=== PATIENT | female | born 1955 | race African-American/Black ===

== ENCOUNTER → 2020-06-13 | Outpatient (CLI) | payer OTHER ==
[~2020-06-13] VITALS: Ht 170.2 cm; Wt 45.4 kg
[2020-06-13] VITALS (7 sets, daily range): BP systolic 87–128; BP diastolic 42–67
[~2020-06-13] MED LIST: AMLODIPINE BESY10 MG PO; MIRTAZAPINE7.5 MG PO; PLAVIX 75 MG TA75 M1 PO; PLAVIX 75 MG TA75 MG PO; SUPER THERAVIT1 EACH PO; TRAMADOL 50 MG50 MG PO; VITAMIN C500 M2 PO; VITAMIN D3125 MCG PO; ZESTRIL5 MG PO; ZINC SULFATE220 MG PO
[2020-06-13 10:39] LABS: HEMATOCRIT 38.4 % (37.0-47.0); HEMOGLOBIN 11.2 gm/dL (12.0-15.0); MCH 22.8 pg (26.0-34.0); MCHC 29.2 g/dL (28.0-37.0); MCV 78.1 fL (80.0-100.0); RBC 4.92 mil/uL (4.20-5.00); RDW 26.6 % (10.5-14.5); WBC 17.6 thou/uL (4.0-11.0)
[2020-06-13 10:54] LABS: CREATININE 0.9 mg/dL (0.6-1.0); POTASSIUM 3.9 mmol/L (3.5-5.1)
== END | disposition home or self-care (01) ==
LOC: CATH 08:22
PROVIDERS: ATTEND Nuclear Medicine Nuclear Cardiology
DX: I70.238 Atherosclerosis of native arteries of right leg with ulceration of other part of lower leg (principal); I70.213 Atherosclerosis of native arteries of extremities with intermittent claudication, bilateral legs; I70.1 Atherosclerosis of renal artery; I10 Essential (primary) hypertension; L97.919 Non-pressure chronic ulcer of unspecified part of right lower leg with unspecified severity; Z98.890 Other specified postprocedural states; Z79.899 Other long term (current) drug therapy; Z86.73 Personal history of transient ischemic attack (TIA), and cerebral infarction without residual deficits

== ENCOUNTER → 2020-10-07 | Outpatient (CLI) | payer OTHER | LOC: SJCVCIMAG 08:36 | PROVIDERS: ATTEND Nuclear Medicine Nuclear Cardiology | DX: I65.23 Occlusion and stenosis of bilateral carotid arteries (principal); I73.9 Peripheral vascular disease, unspecified; M79.604 Pain in right leg; M79.605 Pain in left leg; I77.9 Disorder of arteries and arterioles, unspecified; E78.00 Pure hypercholesterolemia, unspecified; I10 Essential (primary) hypertension; Z95.828 Presence of other vascular implants and grafts; Z79.82 Long term (current) use of aspirin; Z79.899 Other long term (current) drug therapy ==